=== PATIENT | male | born 1975 | race Caucasian/White ===

== ENCOUNTER 2019-10-11 12:33 | Emergency (ER) | payer SELFPAY ==
[~2019-10-11] VITALS: Ht 180.3 cm; Wt 63.5 kg
--- OUTSIDE RECORDS SUMMARY | ~2019-10-11 | XMS | Encounter Summary ---
Demographics + + + | Address | [address] | | | [place] [address] | + + + | Home Phone | | + + + | Preferred Language | Unknown | + + + | Marital Status | Single | + + + | Yazdanism Affiliation | Unknown | + + + | Race | White | + + + | Ethnic Group | Not or | + + + Author + + + | Author | [facility] | | | and [place] | + + + | Organization | [facility] | | | and [place] | + + + | Address | Unknown | + + + | Phone | Unavailable | + + + Support + + + + + | Name | Relationship | Address | Phone | + + + + + | Kaiden Prado | ECON | [address] | | | | | [place] [address] | | + + + + + Care Team Providers + +------+ + | Care Manager Hris Name | Role | Phone | + +------+ + PCP | Unavailable | + +------+ + Encounter Details +--------+ + + + + | Date | Type | Department | Care Team | Description | +--------+ + + + + | 07/17/ | Hospital | [facility] | | | | 1994 | Encounter | [facility] | | | | | | CENTER [address] | | | | | | [place] | | | | | | [address] | | | | | | [phone] | | | +--------+ + + + + Social History + +-------+ +--------+------+ | Tobacco Use | Types | Packs/Day | Years | Date | | | | | Used | | + +-------+ +--------+------+ | Never Assessed | | | | | + +-------+ +--------+------+ + + + | Sex Assigned at | Date Recorded | | | | + + + | Not on file | | + + + documented as of this encounter Plan of Treatment Not on filedocumented as of this encounter Visit Diagnoses Not on filedocumented in this encounter"
--- OUTSIDE RECORDS SUMMARY | ~2019-10-11 | XMS | Clinical Summary ---
Demographics + + + | Address | [address] | | | [place] [address] | + + + | Home Phone | | + + + | Preferred Language | Unknown | + + + | Marital Status | Single | + + + | Voodoo Affiliation | Unknown | + + + | Race | White | + + + | Ethnic Group | Not or | + + + Author + + + | Author | [facility] | | | and [place] | + + + | Organization | [facility] | | | and [place] | + + + | Address | Unknown | + + + | Phone | Unavailable | + + + Support + + + + + | Name | Relationship | Address | Phone | + + + + + | Kaiden Prado | ECON | [address] | | | | | [place] [address] | | + + + + + Care Team Providers + +------+ + | Care Home Health Care Coordinator Name | Role | Phone | + +------+ + | No, Physician | PCP | Unavailable | + +------+ + Allergies No Known Allergies Medications No known medications Active Problems Not on file Immunizations + + + + | Name | Administration Dates | Next Due | + + + + | TDAP, (ADOL/ADULT) | 06/11/2016 | | + + + + Social History + + + +--------+------+ | Tobacco Use | Types | Packs/Day | Years | Date | | | | | Used | | + + + +--------+------+ | Current Every Day | Cigarettes | 0.5 | 25 | | | Smoker | | | | | + + + +--------+------+ + + +---------+ + | Alcohol Use | Drinks/Week | oz/Week | Comments | + + +---------+ + | No | | | | + + +---------+ + + + + | Sex Assigned at | Date Recorded | | | | + + + | Not on file | | + + + Last Filed Vital Signs + + + + + | Vital Sign | Reading | Time Taken | Comments | + + + + + | Blood Pressure | 133/78 | 06/11/2016 12:13 PM | | | | | PDT | | + + + + + | Pulse | 63 | 06/11/2016 12:13 PM | | | | | PDT | | + + + + + | Temperature | 36.8 C (98.3 F) | 06/11/2016 12:13 PM | | | | | PDT | | + + + + + | Respiratory Rate | 16 | 06/11/2016 12:13 PM | | | | | PDT | | + + + + + | Oxygen Saturation | 100% | 06/11/2016 12:13 PM | | | | | PDT | | + + + + + | Inhaled Oxygen | - | - | | | Concentration | | | | + + + + + | Weight | 61.2 kg (135 lb) | 06/11/2016 12:13 PM | | | | | PDT | | + + + + + | Height | 182.9 cm (6') | 06/11/2016 12:13 PM | | | | | PDT | | + + + + + | Body Mass Index | 18.31 | 06/11/2016 12:13 PM | | | | | PDT | | + + + + + Plan of Treatment + + + + + | Health Maintenance | Due Date | Last | Comments | | | | Done | | + + + + + | Vaccine: Influenza | | | | | (#1) | 0 | | | + + + + + | Vaccine: | | 06/12/19 | | | Dtap/Tdap/Td (2 - | 7 | 17 | | | Td) | | | | + + + + + Results Not on filefrom Last 3 Months Insurance + +--------+ +--------+-------+---------+------+ | Payer | Benefi | Subscriber | Effect | Phone | Address | Type | | | t Plan | ID | tania | | | | | | / | | Dates | | | | | | Group | | | | | | + +--------+ +--------+-------+---------+------+ | [employer]VEL WC | CORVEL | [id number] | | | | PPO | | | OTHER | | [id number]-Pr | | | | | | WC | | esent | | | | + +--------+ +--------+-------+---------+------+ + +--------+ +--------+ + + | Guarantor Name | Accoun | Relation to | Date | Phone | Billing Address | | | t Type | Patient | of | | | | | | | | | | + +--------+ +--------+ + + | Gokul Prado | Worker | Self | [birth year] | [address] | | | s Comp | | 1976 | [phone] | [place] [address] | | | | | | 1 (Home) | | + +--------+ +--------+ + + | Gokul Prado Kim | Person | Self | [birth year] | [address] | | | al/Fam | | 1976 | [phone] | [place] [address] | | | aiyana | | | 1 (Home) | | + +--------+ +--------+ + + Advance Directives + + + + + | Type | Date Recorded | Patient | Explanation | | | | Brim Raiser | | + + + + + | Power of | | | | | Barge Loader | | | | + + + + + | Advance | | | | | Directive | | | | + + + + +"
--- OUTSIDE RECORDS SUMMARY | ~2019-10-11 | XMS | Encounter Summary ---
Demographics + + + | Address | [address] | | | [place] [address] | + + + | Home Phone | | + + + | Preferred Language | Unknown | + + + | Marital Status | Single | + + + | Zoroastrian Affiliation | Unknown | + + + | Race | White | + + + | Ethnic Group | Not or | + + + Author + + + | Author | [facility] | | | and [place] | + + + | Organization | [facility] | | | [...] | | | | | [place] [address] | | + + + + + Care Team Providers + +------+ + | Care Wash Crew Person Name | Role | Phone | + +------+ + | No, Physician | PCP | Unavailable | + +------+ + Reason for Visit + + + | Reason | Comments | + + + | Hand Injury | | + + + Encounter Details +--------+ + + + + | Date | Type | Department | Care Team | Description | +--------+ + + + + | 06/11/ | Emergency | [facility] | Raquel, | Puncture wound of | | 2017 | | [facility] | Cas Morejon MD [address] | right hand with | | | | CENTER [address] | [address] [place] | foreign body, | | | | [place], [place] | [place] [address] | initial encounter | | | | [address] | [phone] | (Primary Dx); | | | | [phone] | | Tetanus-diphtheria | | | | | | vaccination | | | | | | administered at | | | | | | current visit | +--------+ + + + + Social [...] + + documented as of this encounter Last Filed Vital Signs + + + [...] | | + + + + + documented in this encounter Discharge Instructions Instructions Cas García MD - 06/11/2016Take antibiotics as prescribed Ibuprofen for pain Clean wound 2-3x daily to help prevent infection Return for redness, fevers, or any signs of infection AttachmentsThe following attachments cannot be sent through Care Everywhere.PUNCTURE WOUND (GENERAL) (INDONESIAN)documented in this encounter Medications at Time of Discharge + + + +---------+ + + | Medication | Sig | Dispensed | Refills | Start | End Date | | | | | | Date | | + + + +---------+ + + | cephalexin | Take 1 capsule by | 20 | 0 | 06/12/19 | | | (KEFLEX) 500 mg | mouth 4 times daily | capsule | | 17 | 7 | | capsule | for 5 days. | | | | | + + + +---------+ + + documented as of this encounter ED Notes Cas García MD - 06/11/2016 12:26 PM PDTFormatting of this note might be differe nt from the original. [facility] Gokul Prado Emergency Department Encounter Note [address] [place] [id number] PCP:No Physician on file [phone] CHIEF COMPLAINT Chief Complaint Patient presents with Hand Injury ED Room: ED09/ED09 HPI Gokul Prado is a 41 y.o. male who presents with an injury to his right hand. The patient was using a nail gun when he missed and shot a nail through his index finger on his right h and. No other injuries or complaints. No numbness or tingling. PAST MEDICAL & SURGICAL HISTORY No past medical history on file. Past Surgical History Procedure Laterality Date Hernia repair Hydrocele excision CURRENT MEDICATIONS Discharge Medication List as of 06/11/2016 12:41 ALLERGIES No Known Allergies SOCIAL HISTORY Social History Social History Marital Status: Single Spouse Name: N/A Number of Children: N/A Years of Education: N/A Social History Main Topics Smoking status: Current Every Day Smoker -- 0.50 packs/day for 25 years Types: Cigarettes Smokeless tobacco: Not on file Alcohol Use: No Drug Use: Yes Special: Marijuana Sexual Activity: Not on file Other Topics Concern Not on file Social History Narrative No narrative on file REVIEW OF SYSTEMS As in history of present illness. PHYSICAL EXAM VITAL SIGNS: (first vital signs):Temp: 36.8 C (98.3 F) Pulse: 63 Resp: 16 SpO2: 100 % B P: 133/78 mmHg Constitutional: mild distress Neurologic: Alert & oriented. Gait and speech are normal. Psychiatric: Normal mood, affect and judgement. Extremities: patient has a nail protruding through his index finger just distal to the PIP joint. It is through the full R surface primarily but it is through and through. It does n ot feel as though it is involving bone and he is able to flex and extend the finger somewhat with mild discomfort. He has good capillary refill and intact sensation distally ED COURSE & MEDICAL DECISION MAKING Pertinent Labs & Imaging studies reviewed. X-rays were interpreted by myself. Medications and Allergy list as well as nursing notes and prior records were reviewed. This patient had initial x-rays which show the nail approximating the bone but show no defi nite bony involvement otherwise. The nail was then removed easily and the patient was able to fully flex and extend without any limitation. Repeat neurovascular exam was normal. I d id obtain repeat x-rays which again show no bony involvement. At this point I think this is a soft tissue injury without any bone or tendon involvement. We discussed with the patient that there is certainly a risk of delayed infection. We will start him on antibiotics prop hylactically. Tetanus was updated. He was given detailed return precautions. His wound wa s cleaned and dressed here prior to discharge Imaging Results (X-rays interpreted by ED physician) Initial x-ray of the right hand shows a foreign body in the index finger, likely not inv olving bone. No definite fracture Follow-up x-ray of the right hand shows removal of foreign body without acute bony abnor mality FINAL IMPRESSION ICD-10-CM ICD-9-CM 1. Puncture wound of right hand with foreign body, initial encounter S61.441A 882.1 2. Tetanus-diphtheria vaccination administered at current visit Z78.9 V49.89 Discharge Medication List as of 06/11/2016 12:41 START taking these medications Details cephalexin (KEFLEX) 500 mg capsule Take 1 capsule by mouth 4 times daily for 5 days.Disp-20 capsule, R-0, Print Portions of this chart were created with [employer] voice recognition software. Inadvertent so und alike substitutions may be present and are unintentional Cas García MD 06/11/16 1306 do cumented in this encounter Miscellaneous Notes ED Triage Notes - Regine Israel RN - 06/11/2016 12:12 PM PDTPt has a nail to right inde x finger after a nail gun ejected double. Electronically signed by Regine Israel RN at 12:13 PM PDTdocumented in this encounter Plan of Treatment Not on filedocumented as of this encounter Procedures + +--------+ + + + | Procedure Name | Priori | Date/Time | Associated Diagnosis | Comments | | | ty | | | | + +--------+ + + + | XR FINGER RIGHT 2 + | STAT | 06/11/2016 | | Results for this | | VW | | 12:33 PM | | procedure are in the | | | | PDT | | results section. | + +--------+ + + + | XR FINGER RIGHT 2 + | STAT | 06/11/2016 | | Results for this | | VW | | 12:27 PM | | procedure are in the | | | | PDT | | results section. | + +--------+ + + + documented in this encounter Results XR Finger Right 2 + Vw (06/11/2016 12:33 PM PDT) + + | Specimen | + + | | + + + + + | Narrative | Performed At | + + + | THREE VIEWS RIGHT FINGERS 06/11/2016 12:33 PM CLINICAL HISTORY: | [facility] | | HAND INJURY STATUS POST FOREIGN BODY REMOVAL COMPARISON: PRECEDING | | | RADIOGRAPHS FINDINGS: Previously described foreign body in the | | | second digit has been removed. No residual foreign body, recent | | | fracture or subluxation is visible. Healed fracture deformity of the | | | distal fifth metacarpal is again suggested. Joint spaces are | | | maintained. Soft tissues are unremarkable. IMPRESSION - 1. | | | NO VISIBLE FRACTURE OR OTHER ACUTE ABNORMALITY STATUS POST FOREIGN | | | BODY REMOVAL. Dictated and Signed by: Dyllan Hurd MD | | | Electronically signed: 06/11/2016 2:11 PM | | + + + + + | Procedure Note | + + | Kin, Rad Results In - 06/11/2016 2:14 PM PDT THREE VIEWS RIGHT FINGERS 06/11/2016 | | 12:33 PMCLINICAL HISTORY: HAND INJURY STATUS POST FOREIGN BODY REMOVALCOMPARISON: | | PRECEDING RADIOGRAPHSFINDINGS: Previously described foreign body in the second digit has | | beenremoved. No residual foreign body, recent fracture or subluxation is visible. | | Healed fracture deformity of the distal fifth metacarpal is again suggested. Joint | | spaces are maintained. Soft tissues are unremarkable.IMPRESSION -1. NO VISIBLE | | FRACTURE OR OTHER ACUTE ABNORMALITY STATUS POST FOREIGN BODYREMOVAL.Dictated and Signed | | by: Dyllan Hurd MD Electronically signed: 06/11/2016 2:11 PM | |Healed fracture deformity of the distal fifth metacarpal is again suggested. | |Joint spaces are maintained. Soft tissues are unremarkable. | | | |IMPRESSION - | | | |1. NO VISIBLE FRACTURE OR OTHER ACUTE ABNORMALITY STATUS POST FOREIGN BODY | |REMOVAL. | | | |Dictated and Signed by: Dyllan Hurd MD | | Electronically signed: 06/11/2016 2:11 PM | + + + +---------+ + + | Performing | Address | City/State/Zipcode | Phone Number | | Organization | | | | + +---------+ + + | [facility] | | | | + +---------+ + + XR Finger Right 2 + Vw (06/11/2016 12:27 PM PDT) + + | Specimen | + + | | + + + + + | Narrative | Performed At | + + + | TWO VIEWS RIGHT FINGERS 06/11/2016 12:19 PM CLINICAL HISTORY: | [facility] | | nail vs finger COMPARISON: None available FINDINGS: A nail | | | shaped metallic foreign body traverses the second digit at the level | | | of the distal aspect of the proximal phalanx. No recent fracture or | | | subluxation is visible. Healed fracture deformity of the distal | | | fifth metacarpal is suggested. Joint spaces are maintained. Soft | | | tissues are unremarkable. IMPRESSION - 1. METALLIC FOREIGN | | | BODY TRAVERSING THE SECOND DIGIT WITHOUT VISIBLE FRACTURE. | | | Dictated and Signed by: Dyllan Hurd MD Electronically signed: | | | 06/11/2016 2:09 PM | | + + + + + | Procedure Note | + + | Kin, Rad Results In - 06/11/2016 2:12 PM PDT TWO VIEWS RIGHT FINGERS 06/11/2016 12:19 | | PMCLINICAL HISTORY: nail vs fingerCOMPARISON: None availableFINDINGS: A nail shaped | | metallic foreign body traverses the second digit at thelevel of the distal aspect of the | | proximal phalanx. No recent fracture orsubluxation is visible. Healed fracture | | deformity of the distal fifthmetacarpal is suggested. Joint spaces are maintained. | | Soft tissues areunremarkable.IMPRESSION -1. METALLIC FOREIGN BODY TRAVERSING THE SECOND | | DIGIT WITHOUT VISIBLE FRACTURE.Dictated and Signed by: Dyllan Hurd MD Electronically | | signed: 06/11/2016 2:09 PM | |subluxation is visible. Healed fracture deformity of the distal fifth | |metacarpal is suggested. Joint spaces are maintained. Soft tissues are | |unremarkable. | | | |IMPRESSION - | | | |1. METALLIC FOREIGN BODY TRAVERSING THE SECOND DIGIT WITHOUT VISIBLE FRACTURE. | | | |Dictated and Signed by: Dyllan Hurd MD | | Electronically signed: 06/11/2016 2:09 PM | + + + +---------+ + + | Performing | Address | City/State/Zipcode | Phone Number | | Organization | | | | + +---------+ + + | [facility] | | | | + +---------+ + + documented in this encounter Visit Diagnoses + + | Diagnosis | + + | Puncture wound of right hand with foreign body, initial encounter - Primary | + + | Tetanus-diphtheria vaccination administered at current visit | + + documented in this encounter Administered Medications + +--------+ +--------+------+------+ | Medication Order | MAR | Action | Dose | Rate | Site | | | Action | Date | | | | + +--------+ +--------+------+------+ | cephalexin (KEFLEX) capsule 500 | Given | 06/12/19 | 500 mg | | | | mg 500 mg, Oral, ONCE, Fri | | 17 12:45 | | | | | 06/11/16 at 1240, For 1 dose, | | PM PDT | | | | | Indications: Puncture Wound | | | | | | + +--------+ +--------+------+------+ +---+---+ | | | +---+---+ + +-------+ +---------+---+ + | ueglvqy-gybnrzucrx-qgkamjnfn | Given | 06/12/19 | 0.5 mLs | | Deltoid- | | pertussis (ADACEL, Tdap) vaccine | | 17 12:22 | | | Right | | injection 0.5 mL 0.5 mL, | | PM PDT | | | | | Intramuscular, ONCE, 06/11/16 | | | | | | | at 1220, For 1 dose, Keep in | | | | | | | refrigerator. Provide patient | | | | | | | education information., | | | | | | + +-------+ +---------+---+ + +---+---+ | | | +---+---+ documented in this encounter"
== END 2019-10-11 14:18 | disposition home or self-care (01) ==
LOC: ED 12:33
DX: T67.5XXA Heat exhaustion, unspecified, initial encounter (principal); F17.200 Nicotine dependence, unspecified, uncomplicated; X32.XXXA Exposure to sunlight, initial encounter
CPT/HCPCS: 99284; J7121